=== PATIENT | female | born 1940 | race Caucasian/White ===

== ENCOUNTER 2017-01-18 14:41 | Emergency (ER) | payer OTHER, MEDICARE ==
[~2017-01-18] VITALS: Ht 152.4 cm; Wt 89.0 kg
[~2017-01-18 14:41] MED LIST: ASCO10003 PO; ASCO500T16 PO; ATOR-26 PO; CHOL100010 PO; CITA40TA4 PO; CRFL PO; CYAN500T PO; DONE1TAB26 PO; FERROUS SULFATE PO; INSDGI SC; INSU100I2 SC; LEVO100T PO; METO25TA56 PO; MISO200T PO; MULTTAB58 PO; NTRGSL/4 UT; OMEP40CA PO; TYLOTC500 PO
[2017-01-18 14:49] VITALS: TEMP 36.4; Ht 152.4 cm; Wt 89.0 kg
[2017-01-18] MEDS ORDERED: OMEP40CA41 PO (16:23)
[2017-01-18] MEDS ORDERED: QUET1TAB30 PO (16:23)
[2017-01-18] MEDS ORDERED: ASPI81TA28 PO (16:23)
[2017-01-18] MEDS ORDERED: SYN137 PO (16:23)
[2017-01-18] MEDS ORDERED: QUET1TAB32 PO (16:23)
[2017-01-18] MEDS ORDERED: FERR325T5 PO (16:23)
[2017-01-18] MEDS ORDERED: NMN5 PO (16:23)
[2017-01-18] MEDS ORDERED: TRAZ50TA35 PO (16:23)
[2017-01-18] MEDS ORDERED: ISR/30 PO (16:23)
[2017-01-18] MEDS ORDERED: CHOL100010 PO (16:23)
[2017-01-18] MEDS ORDERED: TRAMADOL HCL 50 MG TAB PO STA (16:26)
[2017-01-18] MEDS ORDERED: TRAMADOL HCL 50 MG HOME PACK PO ONE (16:30)
--- NOTE | 2017-01-18 16:32 | EMERGENCY ROOM VISIT NOTE ---
History Report prepared by Juan: Yuridia Bass Under the Supervision of: Dr. Richy George D.O. First contact with patient: 16:06 Chief Complaint: PELVIC PAIN Stated Complaint: PRESSURE ULCER DROPPED BLADDER History of Present Illness The patient is a 76 year old female who presents to the Emergency Room with complaints of persistent pelvic pain that started yesterday. The patient rates her pain a 6/10 in severity. The patient states that she had an extended bladder and went to [facility] 3 days ago. The patient notes that they put in a pessary but they had difficulty getting it in. She states that they switched it to a smaller size so they could insert it. She notes that she was told to take it out and clean it yesterday but they had difficulty getting it back in. The patient reports that when they put it back in, she was in a lot of discomfort. She notes that she has been experiencing a lot of pain since she put it back in. She states that she it is not in a lot of pain right now but she notices that it is there. The patient reports that since she changed the pessary, she has been experiencing frequent urination. Source of History: patient Onset: Yesterday Position: pelvis Symptom Intensity: 6/10 Associated Symptoms: + urinary symptoms (frequent urination) Review of Systems See HPI for pertinent positives & negatives. A total of 10 systems reviewed and were otherwise negative. Past Medical & Surgical Medical Problems: (1) CAD (coronary artery disease) (2) Carotid stenosis (3) CKD (chronic kidney disease), stage III (4) Depression (5) Diabetic retinopathy (6) DM type 2 (diabetes mellitus, type 2) (7) Dyslipidemia (8) Gout (9) Hyperlipidemia (10) Hypertension (11) Hypothyroidism (12) Osteoporosis (13) SBO (small bowel obstruction) (14) Sick sinus syndrome (15) UGIB (upper gastrointestinal bleed) Surgical Problems: (1) Hx of cholecystectomy (2) Hx of gastric bypass (3) Implantation of cardiac pacemaker (4) S/P CABG x 4 (5) S/P cataract surgery (6) S/p cystocele repair (7) S/p excision of breast lesion (8) S/p panniculectomy with hernia repair Family History FHx: heart disease Social History Smoking Status: Never Smoker Alcohol Use: none Drug Use: none Marital Status: Housing Status: lives with family Occupation Status: retired Current/Historical Medications Scheduled Ascorbic Acid (Vitamin C), 1 TAB PO QAM Aspirin (Aspirin Ec), 81 MG PO DAILY Atorvastatin (Lipitor), 80 MG PO QPM Cholecalciferol (Vitamin D), 1,000 UNITS PO BID Citalopram (Citalopram Hydrobromide), 1 TAB PO QAM Donepezil Hydrochloride (Donepezil Hcl), 1 TAB PO HS Ferrous Sulfate (Ferrous Sulfate), 65 MG PO QAM Insulin Glargine (Lantus), 14 UNITS SC HS Insulin Lispro (Human) (Humalog Kwikpen), 1 DOSE SC TID Isosorbide Dinitrate (Isordil), 30 MG PO QPM Levothyroxine Sodium (Levothyroxine Sodium), 137 MG PO QAM Memantine (Namenda), 5 MG PO BID Metoprolol Tartrate (Lopressor) (Lopressor), 0.5 TAB PO BID Multiple Vitamin (Multivitamin), 1 TAB PO QPM Nitroglycerin (Nitrostat), 0.4 MG UT PRN Omeprazole (Prilosec), 40 MG PO BID Quetiapine Fumarate (Seroquel), 25 MG PO QAM Quetiapine Fumarate (Seroquel), 50 MG PO QPM Trazodone Hcl (Trazodone), 100 MG PO HS Scheduled PRN Acetaminophen (Tylenol), 500 MG PO Q6H PRN for Pain Allergies Coded Allergies: Niacin (Verified Allergy, Severe, HNT, 01/18/17) Dust (Verified Allergy, Intermediate, ASTHMA SYMPTOMS, 01/18/17) Oxycodone (Verified Adverse Reaction, Intermediate, UNABLE TO URINATE, ) Uncoded Allergies: GORE KWESI MESH (Allergy, Severe, SEVERE INFECTION/KEEPS WOUND FROM HEALING, 10/08/12) Physical Exam Vital Signs Date Time Temp Pulse Resp B/P (MAP) Pulse Ox O2 Delivery O2 Flow Rate FiO2 01/18/17 14:49 36.4 63 16 170/85 95 Room Air Physical Exam CONSTITUTIONAL/VITAL SIGNS: Reviewed / noted above. GENERAL: Non-toxic in appearance. INTEGUMENTARY: Warm, dry, and [place]. HEAD: Normocephalic. EYES: without scleral icterus or trauma. ENT/OROPHARYNX: clear and moist. LYMPHADENOPATHY/NECK: Is supple without lymphadenopathy or meningismus. RESPIRATORY: Lungs clear and equal. CARDIOVASCULAR: Regular rate and rhythm. GI/ABDOMEN: Soft and nontender. No organomegaly or pulsatile mass. No rebound or guarding. Normal bowel sounds. EXTREMITIES: Warm and well perfused. BACK: No CVA tenderness. NEUROLOGICAL: Intact without focal deficits. PSYCHIATRIC: normal affect. MUSCULOSKELETAL: Normally developed with good muscle tone. VAGINAL: There is a pessary in place. I was unable to remove this. There is no obvious bleeding or infection or abnormal discharge. TRIAGE NURSING DOCUMENTATION REVIEWED. Medical Decision & Procedures Medications Administered Medications (Trade) Dose Ordered Sig/Sammy Route Start Time Stop Time Status Last Admin Dose Admin Tramadol HCl (Ultram Tab) 50 mg NOW STAT PO 01/18/17 16:26 01/18/17 16:27 DC 01/18/17 16:34 50 MG Tramadol HCl (Ultram Home Pack) 1 homepack UD ONCE PO 01/18/17 16:30 01/18/17 16:31 DC 01/18/17 16:34 1 HOMEPACK ED Course 1606: Previous medical records were reviewed. The patient was evaluated in room B11B. A complete history and physical examination was performed. 1621: I discussed the patient's case with Rian Ramirez. The patient will be evaluated for further treatment and disposition. 1626: Ordered Ultram Tab 50 mg PO. 1630: Ordered Ultram Home Pack 1 home pack PO. Medical Decision Differential includes infection, trauma, foreign body discomfort. This is a 76-year-old female who presents the ED with a chief complaint of discomfort from a pessary that was placed on . The patient removed it on Thursday and replaced it. Today was causing some discomfort and they were unable to remove it. They came in for evaluation. The pessary appears to be adherent to the surface. Rotation and pulling did not help with removing it. I was unable to grab the edge of the pessary with my finger. I spoke with Dr. Ewing about the patient. He recommends the patient follow up with their office tomorrow and they will evaluate the situation and removed the pessary. The patient was given Ultram for pain. She was given Ultram home pack. She is felt to be stable for discharge. Medication Reconcilliation Current Medication List: was personally reviewed by me Blood Pressure Screening Patient's blood pressure: Normal blood pressure Impression Primary Impression: Vaginal irritation from pessary Scribe Attestation The scribe's documentation has been prepared under my direction and personally reviewed by me in its entirety. I confirm that the note above accurately reflects all work, treatment, procedures, and medical decision making performed by me. Departure Information Dispostion Home / Self-Care Referrals Marissa Manley M.D. (PCP) Patient Instructions My [facility] Additional Instructions Use Ultram: One tablet every 6 hours as needed for discomfort. Call the gynecology office tomorrow at 8 AM to schedule to be seen for removal of the pessary.
[2017-01-18 16:42] VITALS: BP 133/67; PULSE 76; O2SAT 98
== END 2017-01-18 16:43 | disposition home or self-care (01) ==
LOC: C.EDB 14:44
DX: N89.8 Other specified noninflammatory disorders of vagina (principal); Z96.0 Presence of urogenital implants; I25.10 Atherosclerotic heart disease of native coronary artery without angina pectoris; I65.29 Occlusion and stenosis of unspecified carotid artery; I12.9 Hypertensive chronic kidney disease with stage 1 through stage 4 chronic kidney disease, or unspecified chronic kidney disease; N18.3 Chronic kidney disease, stage 3 (moderate); F32.9 Major depressive disorder, single episode, unspecified; E11.22 Type 2 diabetes mellitus with diabetic chronic kidney disease; E11.319 Type 2 diabetes mellitus with unspecified diabetic retinopathy without macular edema; E78.5 Hyperlipidemia, unspecified; E03.9 Hypothyroidism, unspecified; M81.0 Age-related osteoporosis without current pathological fracture; M10.9 Gout, unspecified; I49.5 Sick sinus syndrome; Z95.0 Presence of cardiac pacemaker; Z98.84 Bariatric surgery status; Z79.82 Long term (current) use of aspirin; Z79.4 Long term (current) use of insulin

== ENCOUNTER 2017-05-15 12:52 | Observation (INO) | payer OTHER, MEDICARE ==
[~2017-05-15] VITALS: Ht 152.4 cm; Wt 90.6 kg
[~2017-05-15 12:52] MED LIST changes: -ASCO500T16 PO; +ASPI81TA28 PO; -CRFL PO; -CYAN500T PO; +FERR325T5 PO; -FERROUS SULFATE PO; +ISR/30 PO; -LEVO100T PO; -MISO200T PO; +NMN5 PO; -OMEP40CA PO; +OMEP40CA41 PO; +QUET1TAB30 PO; +QUET1TAB32 PO; +SYN137 PO; +TRAZ50TA35 PO
[2017-05-15] MEDS ORDERED: CALC-393 PO (14:27)
[2017-05-15] MEDS ORDERED: DONE10TA12 PO (14:27)
[2017-05-15] MEDS ORDERED: DIPH-437 PO (14:27)
[2017-05-15 14:47] LABS: BASO % 0.2 %; BASO ABS # 0.02 K/uL (0-0.2); EOS % 0.9 %; EOS ABS # 0.08 K/uL (0-0.5); HEMATOCRIT 38.5 % (37-47); HEMOGLOBIN 12.5 g/dL (12.0-16.0); IG# 0.02 K/uL (0.00-0.02); LYMPH % 9.8 %; LYMPH ABS # 0.85 K/uL (1.2-3.4); MEAN CELL VOLUME 95.3 fL (80-100); MEAN CORPUSCULAR HEMOGLOBIN 30.9 pg (25-34); MEAN CORPUSCULAR HGB CONC 32.5 g/dl (32-36); MEAN PLATELET VOLUME 11.3 fL (7.4-10.4); MONO % 5.8 %; NEUT % 83.1 %; NEUT ABS # 7.17 K/uL (1.4-6.5); PLATELET COUNT 170 K/uL (130-400); RED CELL DISTRIBUTION WIDTH CV 13.6 % (11.5-14.5); RED CELL DISTRIBUTION WIDTH SD 47.1 fL (36.4-46.3); WHITE BLOOD COUNT 8.64 K/uL (4.8-10.8)
--- NOTE | 2017-05-15 14:59 | DIAGNOSTIC IMAGING REPORT ---
CHEST ONE VIEW PORTABLE CLINICAL HISTORY: CHEST PAIN dyspnea COMPARISON STUDY: 06/23/2015 FINDINGS: Pre-existing findings of a prior median sternotomy. Permanent bipolar cardiac pacemaker in good position. Lungs are clear. Diaphragms smooth. IMPRESSION: No acute process. The above report was generated using voice recognition software. It may contain grammatical, syntax or spelling errors. Electronically signed by: James Delcid M.D. 05/15/2017 2:57 PM Dictated Date/Time: 05/15/2017 2:57 PM
[2017-05-15 15:09] LABS: ALBUMIN 2.7 gm/dl (3.4-5.0); ALT/SGPT 38 U/L (12-78); AST/SGOT 34 U/L (15-37); BLOOD UREA NITROGEN 28 mg/dl (7-18); CALCIUM 8.6 mg/dl (8.5-10.1); CARBON DIOXIDE 27 mmol/L (21-32); CREATININE 1.06 mg/dl (0.60-1.20); GLUCOSE 220 mg/dl (70-99); LIPASE 112 U/L (73-393); POTASSIUM 4.7 mmol/L (3.5-5.1); SODIUM 138 mmol/L (136-145)
[2017-05-15 15:15] LABS: ALKALINE PHOSPHATASE 125 U/L (45-117); TOTAL PROTEIN 6.9 gm/dl (6.4-8.2)
[2017-05-15] MEDS ORDERED: ASPIRIN 81 MG CHEW PO STA (15:31)
--- NOTE | 2017-05-15 15:42 | EMERGENCY ROOM VISIT NOTE ---
History Report prepared by Juan: Ellen Otero Under the Supervision of: Dr. Stuart Hernández M.D. First contact with patient: 14:31 Chief Complaint: CHEST PAIN Stated Complaint: CHEST PAIN HX OF HEART ATTACK Nursing Triage Summary: triage note: Pt reports mid chest pain lasting approx 5 min at 1130 today. pt reports hx of pacemaker and and quad bypass. History of Present Illness The patient is a 77 year old female who presents to the Emergency Room with complaints of resolved chest pain starting at 1130 today. The patient complained of fullness and heaviness in her chest at 1130 and associated "paleness". She felt SOB at the time. She appeared pale. She was given a nitro which relieved her pain. Her notes that she has been feeling SOB with ambulation recently. She has not had significant diaphoresis, nausea, vomiting, fever, chills, cough, congestion, or urinary symptoms. She has a history of MO and CABG x4. With her previous MO she complained of indigestion. She has a pacemaker. Source of History: patient, family, spouse/significant other Onset: 1130 Position: chest Quality: other (heaviness, fullness) Timing: resolved Modifying Factors (Relieving): other (nitro) Associated Symptoms: + SOB, No fevers, No chills, No diaphoresis, No cough, No nausea, No vomiting, No urinary symptoms Review of Systems See HPI for pertinent positives and negatives. A total of ten systems were reviewed and were otherwise negative. Past Medical & Surgical Medical Problems: (1) CAD (coronary artery disease) (2) Carotid stenosis (3) CKD (chronic kidney disease), stage III (4) Depression (5) Diabetic retinopathy (6) DM type 2 (diabetes mellitus, type 2) (7) Dyslipidemia (8) Gout (9) Hyperlipidemia (10) Hypertension (11) Hypothyroidism (12) Osteoporosis (13) Sick sinus syndrome (14) UGIB (upper gastrointestinal bleed) Surgical Problems: (1) Hx of cholecystectomy (2) Hx of gastric bypass (3) Implantation of cardiac pacemaker (4) S/P CABG x 4 (5) S/P cataract surgery (6) S/p cystocele repair (7) S/p excision of breast lesion (8) S/p panniculectomy with hernia repair Family History FHx: heart disease Social History Smoking Status: Never Smoker Alcohol Use: none Drug Use: none Marital Status: Housing Status: lives with family Occupation Status: retired Current/Historical Medications Scheduled Ascorbic Acid (Vitamin C), 1 TAB PO QAM Aspirin (Aspirin Ec), 81 MG PO DAILY Atorvastatin (Lipitor), 80 MG PO QPM Cholecalciferol (Vitamin D), 1,000 UNITS PO BID Citalopram (Citalopram Hydrobromide), 1 TAB PO QAM Donepezil Hydrochloride (Donepezil Hcl), 1 TAB PO HS Ferrous Sulfate (Ferrous Sulfate), 65 MG PO QAM Insulin Glargine (Lantus), 14 UNITS SC HS Insulin Lispro (Human) (Humalog Kwikpen), 1 DOSE SC TID Isosorbide Mononitrate Ext Rel (Imdur Ext Rel), 1 TAB PO HS Levothyroxine Sodium (Levothyroxine Sodium), 137 MG PO QAM Memantine (Namenda), 5 MG PO BID Metoprolol Tartrate (Lopressor) (Lopressor), 0.5 TAB PO BID Multiple Vitamin (Multivitamin), 1 TAB PO QPM Nitroglycerin (Nitrostat), 0.4 MG UT PRN Omeprazole (Prilosec), 40 MG PO BID Quetiapine Fumarate (Seroquel), 25 MG PO QAM Quetiapine Fumarate (Seroquel), 50 MG PO QPM Trazodone Hcl (Trazodone), 100 MG PO HS Allergies Coded Allergies: Niacin (Verified Allergy, Severe, HNT, 05/15/17) Dust (Verified Allergy, Intermediate, ASTHMA SYMPTOMS, 05/15/17) Oxycodone (Verified Adverse Reaction, Intermediate, UNABLE TO URINATE, ) Uncoded Allergies: GORE KWESI MESH (Allergy, Severe, SEVERE INFECTION/KEEPS WOUND FROM HEALING, 10/08/12) Physical Exam Vital Signs Date Time Temp Pulse Resp B/P (MAP) Pulse Ox O2 Delivery O2 Flow Rate FiO2 05/15/17 16:02 65 16 177/77 96 Room Air 05/15/17 14:41 65 05/15/17 14:26 65 20 145/87 94 Room Air 05/15/17 14:25 96 Room Air 05/15/17 13:02 36.8 65 20 199/64 93 Room Air Physical Exam GENERAL: Awake, alert, well-appearing, in no distress HENT: Normocephalic, atraumatic. Oropharynx unremarkable. EYES: Normal conjunctiva. Sclera non-icteric. NECK: Supple. No nuchal rigidity. FROM. No JVD. RESPIRATORY: Clear to auscultation. CARDIAC: Regular rate, normal rhythm. Extremities warm and well perfused. Pulses equal. ABDOMEN: Obese. Soft, non-distended. No tenderness to palpation. No rebound or guarding. No masses. RECTAL: Deferred. MUSCULOSKELETAL: Chest examination reveals no tenderness. The back is symmetrical on inspection without obvious abnormality. There is no CVA tenderness to palpation. No joint edema. LOWER EXTREMITIES: Calves are equal size bilaterally and non-tender. Scant lower extremity edema. No discoloration. NEURO: Normal sensorium. No sensory or motor deficits noted. SKIN: No rash or jaundice noted. Medical Decision & Procedures ER Provider Diagnostic Interpretation: Xray results as stated below per my and radiologist interpretation: CHEST ONE VIEW PORTABLE CLINICAL HISTORY: CHEST PAIN dyspnea COMPARISON STUDY: 06/23/2015 FINDINGS: Pre-existing findings of a prior median sternotomy. Permanent bipolar cardiac pacemaker in good position. Lungs are clear. Diaphragms smooth. IMPRESSION: No acute process. The above report was generated using voice recognition software. It may contain grammatical, syntax or spelling errors. Electronically signed by: James Delcid M.D. 05/15/2017 2:57 PM Dictated Date/Time: 05/15/2017 2:57 PM Laboratory Results 05/15/17 14:28 Red Blood Count 4.04, Mean Corpuscular Volume 95.3, Mean Corpuscular Hemoglobin 30.9, Mean Corpuscular Hemoglobin Concent 32.5, Mean Platelet Volume 11.3, Neutrophils (%) (Auto) 83.1, Lymphocytes (%) (Auto) 9.8, Monocytes (%) (Auto) 5.8, Eosinophils (%) (Auto) 0.9, Basophils (%) (Auto) 0.2, Neutrophils # (Auto) 7.17, Lymphocytes # (Auto) 0.85, Monocytes # (Auto) 0.50, Eosinophils # (Auto) 0.08, Basophils # (Auto) 0.02 05/15/17 14:28 Test 05/15/17 14:28 White Blood Count 8.64 K/uL (4.8-10.8) Red Blood Count 4.04 M/uL (4.2-5.4) Hemoglobin 12.5 g/dL (12.0-16.0) Hematocrit 38.5 % (37-47) Mean Corpuscular Volume 95.3 fL (80-100) Mean Corpuscular Hemoglobin 30.9 pg (25-34) Mean Corpuscular Hemoglobin Concent 32.5 g/dl (32-36) Platelet Count 170 K/uL (130-400) Mean Platelet Volume 11.3 fL (7.4-10.4) Neutrophils (%) (Auto) 83.1 % Lymphocytes (%) (Auto) 9.8 % Monocytes (%) (Auto) 5.8 % Eosinophils (%) (Auto) 0.9 % Basophils (%) (Auto) 0.2 % Neutrophils # (Auto) 7.17 K/uL (1.4-6.5) Lymphocytes # (Auto) 0.85 K/uL (1.2-3.4) Monocytes # (Auto) 0.50 K/uL (0.11-0.59) Eosinophils # (Auto) 0.08 K/uL (0-0.5) Basophils # (Auto) 0.02 K/uL (0-0.2) RDW Standard Deviation 47.1 fL (36.4-46.3) RDW Coefficient of Variation 13.6 % (11.5-14.5) Immature Granulocyte % (Auto) 0.2 % Immature Granulocyte # (Auto) 0.02 K/uL (0.00-0.02) Prothrombin Time 10.1 SECONDS (9.0-12.0) Prothromb Time International Ratio 1.0 (0.9-1.1) Anion Gap 5.0 mmol/L (3-11) Est Creatinine Clear Calc Drug Dose 43.4 ml/min Estimated GFR () 58.2 Estimated GFR (Non- 50.3 BUN/Creatinine Ratio 26.5 (10-20) Calcium Level 8.6 mg/dl (8.5-10.1) Magnesium Level 1.9 mg/dl (1.8-2.4) Total Bilirubin 0.2 mg/dl (0.2-1) Direct Bilirubin < 0.1 mg/dl (0-0.2) Aspartate Amino Transf (AST/SGOT) 34 U/L (15-37) Alanine Aminotransferase (ALT/SGPT) 38 U/L (12-78) Alkaline Phosphatase 125 U/L (45-117) Pro-B-Type Natriuretic Peptide 959 pg/ml (0-1800) Total Protein 6.9 gm/dl (6.4-8.2) Albumin 2.7 gm/dl (3.4-5.0) Lipase 112 U/L (73-393) Laboratory results reviewed by me Medications Administered Medications (Trade) Dose Ordered Sig/Sammy Route Start Time Stop Time Status Last Admin Dose Admin Aspirin (Aspirin Chew) 324 mg NOW STAT PO 05/15/17 15:31 05/15/17 15:35 DC 05/15/17 16:04 243 MG ECG Per My Interpretation Indication: chest pain Rate (beats per minute): 65 Rhythm: other (atrial paced) Findings: no acute ischemic change, left axis deviation ED Course 1434: The patient was evaluated in room C5. A complete history and physical exam was performed. 1531: Aspirin 324 mg PO. 1548: I discussed the patient with Dr. Bustos, [facility] - She will evaluate the patient for further treatment. 1654: Upon reexamination, the patient was doing well. I discussed the test results and treatment plan with her and her family. The patient will be evaluated for further management. Medical Decision I reviewed the patient's past medical history, medications, and the nursing notes as described above. Differential diagnosis: Etiologies such as cardiac ischemia, aortic dissection, pulmonary embolism, pneumonia, pneumothorax, musculoskeletal, infections, pericarditis, myocarditis , esophageal rupture, gastrointestinal, as well as others were entertained. The patient is a 77 y/o woman with pmhx of CAD s/p quad bypass presents to the emergency department with SSCP that was a pressure with associated "paleness"/ slight sweating lasting 15 minutes resolved with home NTG. Arrives pain free in NAD, AFVSS. EKG atrial paced without acute ischemia. Trop negative. CXR unremarkable. Heart score 6, moderate risk. Will admit for ACS r/o. Case d/w Dr. Bustos, [facility], who will admit the patient for further management. Medication Reconcilliation Current Medication List: was personally reviewed by me Blood Pressure Screening Patient's blood pressure: Elevated blood pressure Referred to hospitalist. Consults Time Called: 1539 Consulting Physician: [facility] Returned Call: [phone] I discussed the patient with her - She will evaluate the patient for further treatment. Impression Primary Impression: Substernal chest pain Scribe Attestation The scribe's documentation has been prepared under my direction and personally reviewed by me in its entirety. I confirm that the note above accurately reflects all work, treatment, procedures, and medical decision making performed by me. Departure Information Dispostion Being Evaluated By Hospitalist Referrals Marissa Manley M.D. (PCP) Patient Instructions My [facility]
[2017-05-15] MEDS ORDERED: GLUCAGON FOR INJ 1 MG VIAL SQ PRN (16:45)
[2017-05-15] MEDS ORDERED: ACETAMINOPHEN 325 MG TAB PO PRN (16:45)
[2017-05-15] MEDS ORDERED: GLUCOSE 10 TABS/TUBE PO PRN (16:45)
[2017-05-15] MEDS ORDERED: GLUCOSE 40% GEL 15 GM TUBE PO PRN (16:45)
[2017-05-15] MEDS ORDERED: DEXTROSE 50% 50 ML SYR IV PRN (16:45)
[2017-05-15] MEDS ORDERED: NITROGLYCERIN 0.4 MG SL PER TAB CHARGE SL PRN (16:45)
[2017-05-15] MEDS ORDERED: ONDANSETRON INJ 2 MG/ML 2 ML VIAL IV PRN (16:45)
[2017-05-15] MEDS ORDERED: ISOS30TA35 PO (16:58)
[2017-05-15] MEDS ORDERED: ISOSORBIDE MONONITRATE 30 MG TABCR PO SCH ×2 (17:30→21:00)
--- NOTE | 2017-05-15 17:42 | History and Physical ---
History & Physical Date & Time of Service: May 15, 2017 ~ 16:15 Chief Complaint: Chest Pain Primary Care Physician: Marissa Manley M.D. History of Present Illness 77 year old female who presents to the ED with chest pain. At around 1100 this morning, patient developed a left sided chest pressure. She rates the pain # 4/ 10. No radiation of the pain into the jaw, neck, shoulder, or arm. Pain occurred at rest. She took SL nitro and pain was resolved. thought she was breathing a littler heavier than normal. No nausea, diaphoresis, lightheadedness, or dizziness. Patient reports she has been feeling well recently. She chronically sleeps in the a recliner. She frequently climbs 14 steps in her home without difficulty. She denies orthopnea and lower extremity edema. No abdominal pain, vomiting, or diarrhea. She denies fever and chills. No urinary symptoms. In the ED, patient's initial troponin is negative and EKG does not show any acute ST changes. Past Medical/Surgical History Medical Problems: (1) CAD (coronary artery disease) Permanent Comment: s/p CABG x 4 in 1997 Status: Chronic (2) Carotid stenosis Status: Chronic (3) CKD (chronic kidney disease), stage III Status: Chronic (4) Depression Status: Chronic (5) Diabetic retinopathy Status: Chronic (6) DM type 2 (diabetes mellitus, type 2) Status: Chronic (7) Dyslipidemia Status: Chronic (8) Gout Status: Chronic (9) Hyperlipidemia Status: Chronic (10) Hypertension Status: Chronic (11) Hypothyroidism Status: Chronic (12) Osteoporosis Status: Chronic (13) Sick sinus syndrome Permanent Comment: s/p pacemaker insertion in 2006 and revision 10/2013 Status: Chronic Surgical Problems: (1) Hx of cholecystectomy Permanent Comment: July 2014 Status: Chronic (2) Hx of gastric bypass Permanent Comment: 2002 Status: Chronic (3) Implantation of cardiac pacemaker Status: Chronic (4) S/P CABG x 4 Permanent Comment: 1997 Status: Chronic (5) S/P cataract surgery Status: Chronic (6) S/p cystocele repair Status: Chronic (7) S/p excision of breast lesion Permanent Comment: bilateral-benign Status: Chronic (8) S/p panniculectomy with hernia repair Permanent Comment: 2005 Status: Chronic Family History FH: dementia MOTHER Social History Smoking Status: Former Smoker Alcohol Use: none Immunizations History of Influenza Vaccine: Yes Influenza Vaccine Date: Jan 26, 2017 History of Tetanus Vaccine?: Yes Tetanus Immunization Date: Nov 02, 2007 History of Pneumococcal: Yes Pneumococcal Date: Sep 01, 2014 Allergies Coded Allergies: Niacin (Verified Allergy, Severe, HNT, 05/15/17) Dust (Verified Allergy, Intermediate, ASTHMA SYMPTOMS, 05/15/17) Oxycodone (Verified Adverse Reaction, Intermediate, UNABLE TO URINATE, ) Uncoded Allergies: GORE KWESI MESH (Allergy, Severe, SEVERE INFECTION/KEEPS WOUND FROM HEALING, 10/08/12) Home Medications Scheduled Ascorbic Acid (Vitamin C), 1 TAB PO QAM Aspirin (Aspirin Ec), 81 MG PO DAILY Atorvastatin (Lipitor), 80 MG PO QPM Cholecalciferol (Vitamin D), 1,000 UNITS PO BID Citalopram (Citalopram Hydrobromide), 1 TAB PO QAM Donepezil Hydrochloride (Donepezil Hcl), 1 TAB PO HS Ferrous Sulfate (Ferrous Sulfate), 65 MG PO QAM Insulin Glargine (Lantus), 14 UNITS SC HS Insulin Lispro (Human) (Humalog Kwikpen), 1 DOSE SC TID Isosorbide Mononitrate Ext Rel (Imdur Ext Rel), 60 MG PO QAM Levothyroxine Sodium (Levothyroxine Sodium), 137 MG PO QAM Memantine (Namenda), 5 MG PO BID Metoprolol Tartrate (Lopressor), 0.5 TAB PO QPM Metoprolol Tartrate (Lopressor) (Lopressor), 1 TAB PO QAM Multiple Vitamin (Multivitamin), 1 TAB PO QPM Nitroglycerin (Nitrostat), 0.4 MG UT PRN Omeprazole (Prilosec), 40 MG PO BID Quetiapine Fumarate (Seroquel), 25 MG PO QAM Quetiapine Fumarate (Seroquel), 50 MG PO QPM Trazodone Hcl (Trazodone), 100 MG PO HS Review of Systems ROS per HPI, all other systems reviewed and negative Physical Exam Vital Signs Date Time Temp Pulse Resp B/P (MAP) Pulse Ox O2 Delivery O2 Flow Rate FiO2 05/15/17 16:02 65 16 177/77 96 Room Air 05/15/17 14:41 65 05/15/17 14:26 65 20 145/87 94 Room Air 05/15/17 14:25 96 Room Air 05/15/17 13:02 36.8 65 20 199/64 93 Room Air General Appearance: WD/WN, no apparent distress Head: normocephalic, atraumatic Eyes: normal inspection, EOMI, sclerae normal ENT: hearing grossly normal, + pertinent finding (mucous membranes moist) Neck: supple, no JVD, trachea midline Respiratory/Chest: lungs clear, normal breath sounds, no respiratory distress Cardiovascular: regular rate, rhythm, no edema, normal peripheral pulses Abdomen/GI: normal bowel sounds, non tender, soft, no organomegaly Extremities/Musculoskelatal: normal inspection, no calf tenderness, normal capillary refill Neurologic/Psych: no motor/sensory deficits, alert, normal mood/affect, oriented x 3 Skin: normal color, warm/dry Diagnostics Laboratory Results Results Past 24 Hours Test 05/15/17 14:28 05/15/17 16:55 Range/Units White Blood Count 8.64 4.8-10.8 K/uL Red Blood Count 4.04 4.2-5.4 M/uL Hemoglobin 12.5 12.0-16.0 g/dL Hematocrit 38.5 37-47 % Mean Corpuscular Volume 95.3 80-100 fL Mean Corpuscular Hemoglobin 30.9 25-34 pg Mean Corpuscular Hemoglobin Concent 32.5 32-36 g/dl Platelet Count 170 130-400 K/uL Mean Platelet Volume 11.3 7.4-10.4 fL Neutrophils (%) (Auto) 83.1 % Lymphocytes (%) (Auto) 9.8 % Monocytes (%) (Auto) 5.8 % Eosinophils (%) (Auto) 0.9 % Basophils (%) (Auto) 0.2 % Neutrophils # (Auto) 7.17 1.4-6.5 K/uL Lymphocytes # (Auto) 0.85 1.2-3.4 K/uL Monocytes # (Auto) 0.50 0.11-0.59 K/uL Eosinophils # (Auto) 0.08 0-0.5 K/uL Basophils # (Auto) 0.02 0-0.2 K/uL RDW Standard Deviation 47.1 36.4-46.3 fL RDW Coefficient of Variation 13.6 11.5-14.5 % Immature Granulocyte % (Auto) 0.2 % Immature Granulocyte # (Auto) 0.02 0.00-0.02 K/uL Sodium Level 138 136-145 mmol/L Potassium Level 4.7 3.5-5.1 mmol/L Chloride Level 106 98-107 mmol/L Carbon Dioxide Level 27 21-32 mmol/L Anion Gap 5.0 3-11 mmol/L Blood Urea Nitrogen 28 7-18 mg/dl Creatinine 1.06 0.60-1.20 mg/dl Est Creatinine Clear Calc Drug Dose 43.4 ml/min Estimated GFR () 58.2 Estimated GFR (Non- 50.3 BUN/Creatinine Ratio 26.5 10-20 Random Glucose 220 70-99 mg/dl Calcium Level 8.6 8.5-10.1 mg/dl Magnesium Level 1.9 1.8-2.4 mg/dl Total Bilirubin 0.2 0.2-1 mg/dl Direct Bilirubin < 0.1 0-0.2 mg/dl Aspartate Amino Transf (AST/SGOT) 34 15-37 U/L Alanine Aminotransferase (ALT/SGPT) 38 12-78 U/L Alkaline Phosphatase 125 45-117 U/L Troponin I < 0.015 0-0.045 ng/ml Pro-B-Type Natriuretic Peptide 959 0-1800 pg/ml Total Protein 6.9 6.4-8.2 gm/dl Albumin 2.7 3.4-5.0 gm/dl Lipase 112 73-393 U/L Diagnostic Radiology CXR IMPRESSION: No acute process. Impression Assessment and Plan CHEST PAIN, HX CAD SSS S/P PACEMAKER - admit to tele - patient presenting with chest pressure that occurred with rest, resolved with SL nitro given at home - hx CAD s/p CABG x 4 1997 - initial troponin negative, EKG without acute ST changes - will continue to cycle cardiac enzymes, resting echo - continue ASA, beta jeremie, statin, and nitrate - PRN nitro and EKG with further chest pain - pacer interrogation - BP mildly elevated which could be contributing to patient's symptoms - patient reports anxiety about being in the hospital; will give home meds and reassess - cardio consult in AM DM - hgb a1c 8.0 12/2016 - Lantus + SSI ALZHEIMER'S - continue Aricept and Namenda HYPOTHYROIDISM - continue levothyroxine DVT PROPHYLAXIS - SQ Lovenox DISPO - The patient will be placed as observation status for now until further work up is complete. ATTENDING ADDENDUM ; pt seen and examined, care co ordinated with Nadia ARORA 77 yo F with hx of CAD , presented with intermittent chest pain with relief with SL nitro initial troponin , EKG negative for ischemia observe in Tele for cardiac work up serial troponin , resting ECHO , repeat EKG in AM please refer to documentation of Nadia Lizarraga for further discussion on other issues Francie Bustos MD VTE Prophylaxis VTE Risk Assessment Done? Y/N: Yes Risk Level: Moderate
[2017-05-15 18:00] VITALS: BP 176/81; PULSE 65; TEMP 36.7; O2SAT 97; Ht 152.4 cm; Wt 90.6 kg
[2017-05-15] MEDS ORDERED: IV FLUIDS COMPLETED PRN (18:30)
[2017-05-15 20:00] VITALS: BP 182/68; PULSE 65; TEMP 37.2; O2SAT 95; O2SAT 97
[2017-05-15] MEDS: MEMANTINE 5 MG TAB PO SCH (20:21)
[2017-05-15] MEDS: METOPROLOL TARTRATE 25 MG TAB PO SCH (20:22)
[2017-05-15] MEDS: PANTOprazole SOD 40 MG TAB PO SCH (20:23)
[2017-05-15] MEDS: CHOLECALCIFEROL 1000 INTER.UNIT TAB PO SCH (20:23)
[2017-05-15] MEDS: INSULIN ASPART 100 UNITS/ML 3 ML PEN SC SCH (20:25)
[2017-05-15 20:35] LABS: CKMB 1.7 ng/ml (0.5-3.6)
[2017-05-15] MEDS ORDERED: QUETIAPINE FUMARATE 25 MG TAB PO SCH (21:00)
[2017-05-15] MEDS ORDERED: TRAZODONE HCL 100 MG TAB PO SCH (21:00)
[2017-05-15] MEDS ORDERED: MULTIVITAMIN TAB PO SCH (21:00)
[2017-05-15] MEDS ORDERED: INSULIN GLARGINE SOLOSTAR 100 UNITS/ML 3 ML PEN SC SCH (21:00)
[2017-05-15] MEDS ORDERED: ENOXAPARIN 40 MG/0.4 ML SYR SC SCH (21:00)
[2017-05-15] MEDS ORDERED: ATORVASTATIN 40 MG TAB PO SCH (21:00)
[2017-05-15] MEDS ORDERED: DONEPEZIL HCL 10 MG TAB PO SCH (21:00)
[2017-05-15 23:00] VITALS: BP 132/63; O2SAT 95
[2017-05-15 23:25] VITALS: BP 119/71; PULSE 75; TEMP 36.7; O2SAT 94
[2017-05-16] VITALS: O2SAT 97
[2017-05-16 02:27] LABS: CKMB 1.5 ng/ml (0.5-3.6)
[2017-05-16 03:45] VITALS: BP 141/60; PULSE 65; TEMP 36.7; O2SAT 94
[2017-05-16 04:00] VITALS: O2SAT 97
[2017-05-16] MEDS ORDERED: LEVOTHYROXINE 137 MCG TAB PO SCH (06:00)
[2017-05-16 06:56] LABS: HEMOGLOBIN 12.1 g/dL (12.0-16.0); MEAN CELL VOLUME 95.4 fL (80-100); MEAN CORPUSCULAR HEMOGLOBIN 31.2 pg (25-34); MEAN CORPUSCULAR HGB CONC 32.7 g/dl (32-36); MEAN PLATELET VOLUME 11.4 fL (7.4-10.4); PLATELET COUNT 175 K/uL (130-400); RED CELL DISTRIBUTION WIDTH CV 13.7 % (11.5-14.5); RED CELL DISTRIBUTION WIDTH SD 47.8 fL (36.4-46.3); WHITE BLOOD COUNT 7.25 K/uL (4.8-10.8)
[2017-05-16 07:28] LABS: CALCIUM 8.3 mg/dl (8.5-10.1); CREATININE 1.08 mg/dl (0.60-1.20); POTASSIUM 4.5 mmol/L (3.5-5.1)
[2017-05-16 07:52] VITALS: BP 177/77; PULSE 68; TEMP 36.8; O2SAT 96
[2017-05-16] MEDS: MEMANTINE 5 MG TAB PO SCH (08:43)
[2017-05-16] MEDS: PANTOprazole SOD 40 MG TAB PO SCH (08:43)
[2017-05-16] MEDS: METOPROLOL TARTRATE 25 MG TAB PO SCH (08:43)
[2017-05-16] MEDS: CHOLECALCIFEROL 1000 INTER.UNIT TAB PO SCH (08:43)
[2017-05-16] MEDS: INSULIN ASPART 100 UNITS/ML 3 ML PEN SC SCH (08:45)
[2017-05-16] MEDS ORDERED: ASCORBIC ACID 500 MG TAB PO SCH (09:00)
[2017-05-16] MEDS ORDERED: CITALOPRAM 40 MG TAB PO SCH (09:00)
[2017-05-16] MEDS ORDERED: QUETIAPINE FUMARATE 25 MG TAB PO SCH (09:00)
[2017-05-16] MEDS ORDERED: ASPIRIN 81 MG ECTAB PO SCH (09:00)
--- NOTE | 2017-05-16 09:30 | ECHOCARDIOGRAM REPORT ---
*NOTICE TO RECEIVING [employer] This information is strictly Confidential and protected under [place] law. [place] law prohibits you from making any further disclosure of this information unless further disclosure is expressly permitted by the written consent of the person to whom it pertains or is authorized by law. A general authorization for the release of medical or other information is not sufficient for this purpose. Hospital accepts no responsibility if the information is made available to any other person, INCLUDING THE PATIENT. Interpretation Summary * Name: BUD BHATIA Study Date: 05/16/2017 06:59 AM BP: 177/77 mmHg * Patient Location: C.2T\S\S239\S\2 HR: 65 * : 1940 (M/d/yyyy) Gender: Female Height: 60 in * Age: 77 yrs Ethnicity: CA Weight: 196 lb * Ordering Physician: Nadia Lizarraga * Referring Physician: Self, Referred * Performed By: Gera Washington RDCS * * Reason For Study: Chest pain * BSA: 1.9 m2 * -- Conclusions -- * The left ventricle is normal in size. * There is mild concentric left ventricular hypertrophy. * The basal septum is thickened and angulated consistent with sigmoid septum. * There is borderline global hypokinesis of the left ventricle. * No regional wall motion abnormalities noted. * Ejection Fraction = 45-50%. * The left atrium is moderately dilated. * There is moderate focal calcifiction of the non coronary cusp of the aortic valve * Mild aortic regurgitation. Procedure Details * A complete two-dimensional transthoracic echocardiogram was performed (2D, M-mode, Doppler and color flow Doppler). * The study was technically difficult, but visualization was adequate with the administration of Definity ultrasound contrast. * A contrast injection of Definity was performed to improve assessment of LV function. * Contrast was injected into an intravenous site in the right arm. * One vial of Definity ultrasound contrast was diluted in normal saline to a total volume of 10 ml. A total of '2' ml of solution was administered during imaging. * Lot # [id number] of Definity utilized for procedure. * Expiration date . * The attending nurse who injected the contrast agent was Marifer Tse RN. Left Ventricle * The left ventricle is normal in size. * There is mild concentric left ventricular hypertrophy. * The basal septum is thickened and angulated consistent with sigmoid septum. * Ejection Fraction = 45-50%. * There is borderline global hypokinesis of the left ventricle. * No regional wall motion abnormalities noted. Right Ventricle * The right ventricle is normal in size and function. Atria * The left atrium is moderately dilated. * Right atrial size is normal. * No ASD detected; PFO is not assessed. Mitral Valve * The mitral valve anatomy is normal. * There is no mitral valve stenosis. * There is trace mitral regurgitation. Tricuspid Valve * The tricuspid valve anatomy is normal. * There is no tricuspid stenosis. * There is trace tricuspid regurgitation. Aortic Valve * The aortic valve is trileaflet. * There is moderate focal calcifiction of the non coronary cusp of the aortic valve * No hemodynamically significant valvular aortic stenosis. * Mild aortic regurgitation. Pulmonic Valve * The pulmonic valve is not well visualized. Great Vessels * The aortic root is normal size. Pericardium/Pleural * There is no pericardial effusion. Great Vessels * Normal inferior vena cava diameter and respiratory variation suggests normal central venous pressure. Left Ventricular Diastolic Function * Diastolic dysfunction, Grade II (pseudonormalization pattern). MMode 2D Measurements and Calculations IVSd 1.4 cm IVSs 1.9 cm LVIDd 4.1 cm LVIDs 2.8 cm LVPWd 1.4 cm LVPWs 1.9 cm IVS/LVPW 0.97 FS 31.3 % EDV(Teich) 74.8 ml ESV(Teich) 30.2 ml EF(Teich) 59.6 % EDV(cubed) 69.7 ml ESV(cubed) 22.5 ml EF(cubed) 67.6 % % IVS thick 42.5 % % LVPW thick 35.3 % LV mass(C)d 211.2 grams LV mass(C)dI 114.1 grams/m\S\2 LV mass(C)s 225.1 grams LV mass(C)sI 121.6 grams/m\S\2 SV(Teich) 44.6 ml SI(Teich) 24.1 ml/m\S\2 SV(cubed) 47.1 ml SI(cubed) 25.5 ml/m\S\2 EPSS 1.1 cm Ao root diam 2.8 cm Ao root area 6.4 cm\S\2 ACS 1.8 cm LA dimension 4.9 cm asc Aorta Diam 3.5 cm LA/Ao 1.7 LVOT diam 1.9 cm LVOT area 2.8 cm\S\2 LVAd ap4 26.1 cm\S\2 LVLd ap4 6.6 cm EDV(MOD-sp4) 81.9 ml EDV(sp4-el) 87.5 ml LVAs ap4 18.4 cm\S\2 LVLs ap4 6.5 cm ESV(MOD-sp4) 41.6 ml ESV(sp4-el) 43.9 ml EF(MOD-sp4) 49.1 % EF(sp4-el) 49.9 % LVAd ap2 21.9 cm\S\2 LVLd ap2 6.9 cm EDV(MOD-sp2) 56.1 ml EDV(sp2-el) 58.9 ml LVAs ap2 14.6 cm\S\2 LVLs ap2 6.1 cm ESV(MOD-sp2) 30.2 ml ESV(sp2-el) 29.7 ml EF(MOD-sp2) 46.1 % EF(sp2-el) 49.5 % LVLd %diff 4.2 % EDV(MOD-bp) 68.6 ml LVLs %diff -7.16 % ESV(MOD-bp) 35.6 ml EF(MOD-bp) 48.2 % SV(MOD-sp4) 40.2 ml SI(MOD-sp4) 21.7 ml/m\S\2 SV(MOD-sp2) 25.9 ml SI(MOD-sp2) 14.0 ml/m\S\2 SV(MOD-bp) 33.1 ml SI(MOD-bp) 17.9 ml/m\S\2 SV(sp4-el) 43.6 ml SI(sp4-el) 23.6 ml/m\S\2 SV(sp2-el) 29.2 ml SI(sp2-el) 15.8 ml/m\S\2 Doppler Measurements and Calculations MV E max warren 81.3 cm/sec MV A max warren 76.6 cm/sec MV E/A 1.1 MV dec time 0.15 sec Ao V2 max 85.9 cm/sec Ao max PG 3.0 mmHg Ao max PG (full) 0.87 mmHg GRACIE(V,A) 2.4 cm\S\2 GRACIE(V,D) 2.4 cm\S\2 LV V1 max PG 2.1 mmHg LV V1 max 72.2 cm/sec
[2017-05-16 12:03] VITALS: BP 134/82; PULSE 65; TEMP 36.3; O2SAT 95
[2017-05-16] MEDS ORDERED: ISOSORBIDE MONONITRATE 30 MG TABCR PO ONE (12:30)
--- NOTE | 2017-05-16 13:34 | Progress Note ---
Subjective Date of Service: May 16, 2017. Subjective Pt evaluation today including: conversation w/ patient, physical exam, lab review, review of studies, conversation w/ software developer consultant, review of inpatient medication list Problem List Medical Problems: (1) Small bowel obstruction Status: Acute (2) Upper GI bleed Status: Acute (3) Vaginal irritation from pessary Status: Acute Review of Systems Constitutional: No fever, No chills Respiratory: No cough, No sputum, No wheezing, No shortness of breath, No dyspnea on exertion, No dyspnea at rest, No hemoptysis Cardiac: No chest pain (resolved), No edema, No palpitations Abdomen: No pain, No nausea, No vomiting, No diarrhea Female : No dysuria, No urinary frequency Psychiatric: No depression symptoms, No anxiety, No insomnia Heme: No abnormal bleeding/bruising Medications Current Inpatient Medications Medications (Trade) Dose Ordered Sig/Sammy Route Start Time Stop Time Status Last Admin Dose Admin Enoxaparin Sodium (Lovenox Inj) 40 mg QPM SC 05/15/17 21:00 06/14/17 20:59 05/15/17 20:26 40 MG Acetaminophen (Tylenol Tab) 650 mg Q4H PRN PO 05/15/17 16:45 06/14/17 16:44 Ondansetron HCl (Zofran Inj) 4 mg Q6H PRN IV 05/15/17 16:45 06/14/17 16:44 Nitroglycerin (Nitrostat Tab) 0.4 mg UD PRN SL 05/15/17 16:45 06/14/17 16:44 Insulin Glargine (Lantus Solostar Pen) 10 units HS SC 05/15/17 21:00 06/14/17 20:59 05/15/17 20:28 10 UNITS Insulin Aspart (novoLOG ASPART) SLIDING SCALE If C... ACHS SC 05/15/17 21:00 06/14/17 20:59 05/16/17 08:45 1 UNITS Glucose (Glucose 40% Gel) 15-30 GRAMS 15 GRAMS... UD PRN PO 05/15/17 16:45 06/14/17 16:44 Glucose (Glucose Chew Tab) 4-8 Tablets 4 Tabl... UD PRN PO 05/15/17 16:45 06/14/17 16:44 Dextrose (Dextrose 50% 50ML Syringe) 25-50ML OF 50% DW IV FOR... UD PRN IV 05/15/17 16:45 06/14/17 16:44 Glucagon (Glucagon Inj) 1 mg UD PRN SQ 05/15/17 16:45 06/14/17 16:44 Aspirin (Ecotrin Tab) 81 mg DAILY PO 05/16/17 09:00 06/15/17 08:59 05/16/17 08:43 81 MG Atorvastatin Calcium (Lipitor Tab) 80 mg QPM PO 05/15/17 21:00 06/14/17 20:59 05/15/17 20:18 80 MG Cholecalciferol (Vitamin D Tab) 1,000 inter.unit BID PO 05/15/17 21:00 06/14/17 20:59 05/16/17 08:43 1,000 INTER.UNIT Citalopram Hydrobromide (celeXA TAB) 40 mg QAM PO 05/16/17 09:00 06/15/17 08:59 05/16/17 08:43 40 MG Levothyroxine Sodium (Synthroid Tab) 137 mcg DAILYBB PO 05/16/17 06:00 06/15/17 06:59 05/16/17 06:35 137 MCG Memantine (Namenda Tab) 5 mg BID PO 05/15/17 21:00 06/14/17 20:59 05/16/17 08:43 5 MG Metoprolol Tartrate (Lopressor Tab) 12.5 mg BID PO 05/15/17 21:00 06/14/17 20:59 05/16/17 08:43 12.5 MG Multivitamins (Multivitamin Tab) 1 tab QPM PO 05/15/17 21:00 06/14/17 20:59 05/15/17 20:24 1 TAB Quetiapine Fumarate (seroQUEL TAB) 25 mg QAM PO 05/16/17 09:00 06/15/17 08:59 05/16/17 08:43 25 MG Quetiapine Fumarate (seroQUEL TAB) 50 mg QPM PO 05/15/17 21:00 06/14/17 20:59 05/15/17 20:19 50 MG Trazodone HCl (Desyrel Tab) 100 mg HS PO 05/15/17 21:00 06/14/17 20:59 05/15/17 20:21 100 MG Ascorbic Acid (Vitamin C Tab) 1,000 mg QAM PO 05/16/17 09:00 06/15/17 08:59 05/16/17 08:43 1,000 MG Donepezil HCl (Aricept Tab) 10 mg HS PO 05/15/17 21:00 06/14/17 20:59 05/15/17 20:17 10 MG Pantoprazole Sodium (Protonix Tab) 40 mg BID PO 05/15/17 21:00 06/14/17 20:59 05/16/17 08:43 40 MG Miscellaneous (Iv Fluids Completed) 1 ea PRN PRN N/A 05/15/17 18:30 05/15/18 18:29 Miscellaneous Information (Order Awaiting Action) 1 ea QS N/A 05/16/17 00:00 06/15/17 00:00 Isosorbide Mononitrate (Imdur Ext Rel Tab) 60 mg HS PO 05/16/17 21:00 06/14/17 17:29 Objective Vital Signs Date Time Temp Pulse Resp B/P (MAP) Pulse Ox O2 Delivery O2 Flow Rate FiO2 05/16/17 12:03 36.3 65 24 134/82 (99) 95 Room Air 05/16/17 12:00 Room Air 05/16/17 08:00 Room Air 05/16/17 07:52 36.8 68 18 177/77 (110) 96 Room Air 05/16/17 04:00 97 Room Air 05/16/17 03:45 36.7 65 24 141/60 (87) 94 Room Air 05/16/17 00:00 97 Room Air 05/15/17 23:25 36.7 75 20 119/71 (87) 94 Room Air 05/15/17 23:00 132/63 (86) 95 05/15/17 20:00 97 Room Air 05/15/17 20:00 37.2 65 18 182/68 (106) 95 Room Air 05/15/17 18:00 36.7 65 17 176/81 97 Room Air 05/15/17 17:10 36.6 65 16 174/73 97 Room Air 05/15/17 16:02 65 16 177/77 96 Room Air 05/15/17 14:41 65 05/15/17 14:26 65 20 145/87 94 Room Air 05/15/17 14:25 96 Room Air Physical Exam General Appearance: no apparent distress, + obese Eyes: normal inspection ENT: hearing grossly normal Neck: supple Respiratory/Chest: chest non-tender, lungs clear, normal breath sounds, no respiratory distress, no accessory muscle use Cardiovascular: regular rate, rhythm, no edema, + systolic murmur (mild ejection systolic murmur, loud S2) Extremities: normal range of motion, non-tender, normal inspection, no pedal edema, no calf tenderness, + pertinent finding (+scarring b/l LE) Neurologic/Psychiatric: fuel attendant II-XII nml as tested, no motor/sensory deficits, alert, normal mood/affect Laboratory Results Last 24 Hours Test 05/15/17 14:28 05/15/17 19:48 05/15/17 20:14 05/16/17 01:52 White Blood Count 8.64 K/uL Red Blood Count 4.04 M/uL Hemoglobin 12.5 g/dL Hematocrit 38.5 % Mean Corpuscular Volume 95.3 fL Mean Corpuscular Hemoglobin 30.9 pg Mean Corpuscular Hemoglobin Concent 32.5 g/dl Platelet Count 170 K/uL Mean Platelet Volume 11.3 fL Neutrophils (%) (Auto) 83.1 % Lymphocytes (%) (Auto) 9.8 % Monocytes (%) (Auto) 5.8 % Eosinophils (%) (Auto) 0.9 % Basophils (%) (Auto) 0.2 % Neutrophils # (Auto) 7.17 K/uL Lymphocytes # (Auto) 0.85 K/uL Monocytes # (Auto) 0.50 K/uL Eosinophils # (Auto) 0.08 K/uL Basophils # (Auto) 0.02 K/uL RDW Standard Deviation 47.1 fL RDW Coefficient of Variation 13.6 % Immature Granulocyte % (Auto) 0.2 % Immature Granulocyte # (Auto) 0.02 K/uL Prothrombin Time 10.1 SECONDS Prothromb Time International Ratio 1.0 Sodium Level 138 mmol/L Potassium Level 4.7 mmol/L Chloride Level 106 mmol/L Carbon Dioxide Level 27 mmol/L Anion Gap 5.0 mmol/L Blood Urea Nitrogen 28 mg/dl Creatinine 1.06 mg/dl Est Creatinine Clear Calc Drug Dose 43.4 ml/min Estimated GFR () 58.2 Estimated GFR (Non- 50.3 BUN/Creatinine Ratio 26.5 Random Glucose 220 mg/dl Calcium Level 8.6 mg/dl Magnesium Level 1.9 mg/dl Total Bilirubin 0.2 mg/dl Direct Bilirubin < 0.1 mg/dl Aspartate Amino Transf (AST/SGOT) 34 U/L Alanine Aminotransferase (ALT/SGPT) 38 U/L Alkaline Phosphatase 125 U/L Troponin I < 0.015 ng/ml < 0.015 ng/ml < 0.015 ng/ml Pro-B-Type Natriuretic Peptide 959 pg/ml Total Protein 6.9 gm/dl Albumin 2.7 gm/dl Lipase 112 U/L Creatine Kinase MB 1.7 ng/ml 1.5 ng/ml Creatine Kinase MB Ratio Bedside Glucose 133 mg/dl Test 05/16/17 06:23 05/16/17 07:04 05/16/17 11:15 White Blood Count 7.25 K/uL Red Blood Count 3.88 M/uL Hemoglobin 12.1 g/dL Hematocrit 37.0 % Mean Corpuscular Volume 95.4 fL Mean Corpuscular Hemoglobin 31.2 pg Mean Corpuscular Hemoglobin Concent 32.7 g/dl RDW Standard Deviation 47.8 fL RDW Coefficient of Variation 13.7 % Platelet Count 175 K/uL Mean Platelet Volume 11.4 fL Sodium Level 137 mmol/L Potassium Level 4.5 mmol/L Chloride Level 103 mmol/L Carbon Dioxide Level 28 mmol/L Anion Gap 6.0 mmol/L Blood Urea Nitrogen 26 mg/dl Creatinine 1.08 mg/dl Est Creatinine Clear Calc Drug Dose 43.1 ml/min Estimated GFR () 56.9 Estimated GFR (Non- 49.1 BUN/Creatinine Ratio 24.3 Random Glucose 163 mg/dl Calcium Level 8.3 mg/dl Bedside Glucose 175 mg/dl 162 mg/dl Assessment and Plan This is a 77 year old female with a PMH of CAD s/p CABG x4, sick sinus syndrome s/p permanent pacemaker, hx. of paroxysmal atrial fibrillation, insulin dependent DM2, HTN, CKD stage 3, HLD, hypothyroidism - presents with chest pain Chest Pain r/o ACS in the setting of CAD and hx. of CABG x4 appreciate cardiology input cardiac enzymes negative x3, EKG with no changes, echo with no significant changes echo shows Ejection Fraction = 45-50%; The left atrium is moderately dilated plan is to increase metoprolol to 25mg in AM and 12.5mg in the PM increased Imdur from 30mg to 60mg continue aspirin and high intensity statin outpatient cardiology and PCP follow-up Insulin Dependent DM2 Ha1c as outpatient is 8.0% could use tighter control as outpatient continue ophthalmology and podiatry as scheduled I'll continue her home regimen for discharge Sick Sinus Syndrome s/p pacemaker; pacemaker interrogation with no additional findings HTN blood pressure was elevated on presentation will increase metoprolol and monitor this as outpatient DVT ppx Lovenox FULL CODE
[2017-05-16] MEDS ORDERED: METO25TA56 PO (13:37)
[2017-05-16] MEDS ORDERED: ISOS60TA25 PO (13:37)
[2017-05-16] MEDS ORDERED: LPR25 PO (13:38)
--- NOTE | 2017-05-16 13:40 | Discharge Instructions ---
Discharge Instructions Date of Service May 16, 2017. Admission Reason for Admission: Chest Pain Discharge Discharge Diagnosis / Problem: Chest Pain Discharge Goals Goal(s): Decrease discomfort, Improve function, Diagnostic testing, Therapeutic intervention Activity Recommendations Activity Limitations: resume your previous activity . Instructions / Follow-Up Instructions / Follow-Up Please follow-up with Dr. Hogan (covering for Dr. Manley) on May 19 at 2:45PM * Your dose of Isosorbide Mononitrate has changed from 30mg to 60mg * Your dose of Lopressor (metoprolol) has changed to one tablet in the morning ( 25mg) and half a tablet in the evening (12.5mg) * Please follow-up with cardiology in the next month Current Hospital Diet Patient's current hospital diet: AHA Diet (Heart Healthy), Diabetes Type 2 Diet Discharge Diet Recommended Diet: AHA Diet (Heart Healthy), Diabetes Type 2 Diet Pending Studies Studies pending at discharge: no Medical Emergencies . Who to Call and When: Medical Emergencies: If at any time you feel your situation is an emergency, please call 911 immediately. . Non-Emergent Contact Non-Emergency issues call your: Primary Care Provider, Senior Accounting Clerk . . "Provider Documentation" section prepared by Vicky Adan. . VTE Core Measure Inpt VTE Proph given/why not?: Enoxaparin (Lovenox)SQ
--- NOTE | 2017-05-16 13:42 | Discharge Summary ---
Discharge Summary Date of Service May 16, 2017. Discharge Summary Admission Date: May 15, 2017 at 16:36 Discharge Date: May 16, 2017 Discharge Disposition: Home Principal Diagnosis: Chest Pain, possible Ischemia CAD s/p CABG Insulin Dependent DM2 HTN Hypothyroidism Sick Sinus Syndrome s/p Pacemaker Medication Reconciliation New Medications: Metoprolol Tartrate (Lopressor) 25 Mg Tab 0.5 TAB PO QPM for 30 Days, #15 TAB Changed Medications: Isosorbide Mononitrate Ext Rel (Imdur Ext Rel) 60 Mg Ertab 60 MG PO QAM for 30 Days, #30 TAB (Changed from: Isosorbide Mononitrate Ext Rel (Imdur Ext Rel) 30 Mg Tabcr 1 Tab PO HS) Metoprolol Tartrate (Lopressor) (Lopressor) 25 Mg Tab 1 TAB PO QAM for 30 Days, #30 TABS (Changed from: 0.5 TAB; BID) Continued Medications: Ascorbic Acid (Vitamin C) 1,000 Mg Tab 1 TAB PO QAM Aspirin (Aspirin Ec) 81 Mg Tab 81 MG PO DAILY Atorvastatin (Lipitor) 80 Mg Tab 80 MG PO QPM Cholecalciferol (Vitamin D) 1,000 Unit Tab 1000 UNITS PO BID Citalopram (Citalopram Hydrobromide) 40 Mg Tab 1 TAB PO QAM Donepezil Hydrochloride (Donepezil Hcl) 10 Mg Tab 1 TAB PO HS Ferrous Sulfate (Ferrous Sulfate) 325 Mg Tab 65 MG PO QAM Insulin Glargine (Lantus) 100 Unit/Ml Inj 14 UNITS SC HS Insulin Lispro (Human) (Humalog Kwikpen) 100 Unit/Ml Inj 1 DOSE SC TID ADJUSTS PER SLIDING SCALE Levothyroxine Sodium (Levothyroxine Sodium) 137 Mcg Tab 137 MG PO QAM Memantine (Namenda) 5 Mg Tab 5 MG PO BID Multiple Vitamin (Multivitamin) 1 Tab Tab 1 TAB PO QPM Nitroglycerin (Nitrostat) 0.4 Mg Tab 0.4 MG UT PRN Omeprazole (Prilosec) 40 Mg Cap 40 MG PO BID Quetiapine Fumarate (Seroquel) 25 Mg Tab 25 MG PO QAM Quetiapine Fumarate (Seroquel) 50 Mg Tab 50 MG PO QPM Trazodone Hcl (Trazodone) 50 Mg Tab 100 MG PO HS Admission Information HPI (per Admitting provider): 77 year old female who presents to the ED with chest pain. At around 1100 this morning, patient developed a left sided chest pressure. She rates the pain # 4/ 10. No radiation of the pain into the jaw, neck, shoulder, or arm. Pain occurred at rest. She took SL nitro and pain was resolved. thought she was breathing a littler heavier than normal. No nausea, diaphoresis, lightheadedness, or dizziness. Patient reports she has been feeling well recently. She chronically sleeps in the a recliner. She frequently climbs 14 steps in her home without difficulty. She denies orthopnea and lower extremity edema. No abdominal pain, vomiting, or diarrhea. She denies fever and chills. No urinary symptoms. In the ED, patient's initial troponin is negative and EKG does not show any acute ST changes. Physical Exam (per Admitting): General Appearance: WD/WN, no apparent distress Head: normocephalic, atraumatic Eyes: normal inspection, EOMI, sclerae normal ENT: hearing grossly normal, + pertinent finding Neck: supple, no JVD, trachea midline Respiratory/Chest: lungs clear, normal breath sounds, no respiratory distress Cardiovascular: regular rate, rhythm, no edema, normal peripheral pulses Abdomen/GI: normal bowel sounds, non tender, soft, no organomegaly Extremities/Musculoskelatal: normal inspection, no calf tenderness, normal capillary refill Neurologic/Psych: no motor/sensory deficits, alert, normal mood/affect, oriented x 3 Skin: normal color, warm/dry Hospital Course This is a 77 year old female with a PMH of CAD s/p CABG x4, sick sinus syndrome s/p permanent pacemaker, hx. of paroxysmal atrial fibrillation, insulin dependent DM2, HTN, CKD stage 3, HLD, hypothyroidism - presents with chest pain Chest Pain r/o ACS in the setting of CAD and hx. of CABG x4 appreciate cardiology input cardiac enzymes negative x3, EKG with no changes, echo with no significant changes echo shows Ejection Fraction = 45-50%; The left atrium is moderately dilated plan is to increase metoprolol to 25mg in AM and 12.5mg in the PM increased Imdur from 30mg to 60mg continue aspirin and high intensity statin outpatient cardiology and PCP follow-up Insulin Dependent DM2 Ha1c as outpatient is 8.0% could use tighter control as outpatient continue ophthalmology and podiatry as scheduled I'll continue her home regimen for discharge Sick Sinus Syndrome s/p pacemaker; pacemaker interrogation with no additional findings HTN blood pressure was elevated on presentation will increase metoprolol and monitor this as outpatient DVT ppx Lovenox FULL CODE Total time spent on discharge = 25 minutes This includes examination of the patient, discharge planning, medication reconciliation, and communication with other providers. Discharge Instructions Please follow-up with Dr. Hogan (covering for Dr. Manley) on May 19 at 2:45PM * Your dose of Isosorbide Mononitrate has changed from 30mg to 60mg * Your dose of Lopressor (metoprolol) has changed to one tablet in the morning ( 25mg) and half a tablet in the evening (12.5mg) * Please follow-up with cardiology in the next month
[2017-05-16 13:55] VITALS: BP 134/82; PULSE 65; TEMP 36.3; O2SAT 95
--- NOTE | 2017-05-16 16:03 | CARDIOLOGY CONSULTATION ---
DATE OF CONSULTATION: 05/16/2017 REFERRING: Vicky Adan DO PRIMARY CARE PHYSICIAN: Marissa Manley MD INDICATIONS: Chest pain. HISTORY OF PRESENT ILLNESS: The patient is a 77-year-old female, well known to me whose history is notable for: 1. Atherosclerotic coronary artery disease, status post remote myocardial infarction in 1997, subsequent coronary bypass grafting same setting x4. 2. Stable class 2 angina pectoris. 3. Hypertension. 4. Diabetes mellitus. 5. Past sick sinus syndrome, status post dual-chamber pacemaker insertion, last generator exchange 2013 with [employer] model Advantio [id number]. 6. Past history of hyperthyroidism, status post radioactive iodine therapy. 7. History of gastric ulcer and past surgical resection in 2016. 8. Atherosclerotic carotid disease, status post right carotid endarterectomy in 2016. The patient presents today having been hospitalized a day prior after an episode of substernal chest discomfort, observed by family. The patient's symptoms lasted approximately 10 minutes. She was given 1 sublingual nitroglycerin with resolve, and patient was brought to the Emergency Room. Initial serial EKGs and enzymes have not demonstrated evidence of injury or ischemia. She currently feels well. Notes no dizziness, lightheadedness, syncope, near syncope, orthopnea, PND or peripheral edema. She is active about her home to low level degree, climbs stairs, ambulates with cane. Notes no recent fevers, chills or infections. Notes some no melena, hematochezia, dysuria or hematuria. Notes no indigestion or heartburn. Appetite and weight have been generally stable, weight slightly down ____ effort. PAST MEDICAL HISTORY: As described above. In addition patient carries a history of mild dementia, past history of depression, chronic osteoporosis, and dyslipidemia. PAST SURGICAL HISTORY: Notable for described coronary bypass grafting in 1997, past history of cystocele repair, panniculectomy with hernia repair in 2005, gastric bypass prior to that in 2002, dual chamber pacemaker insertion, past cholecystectomy, carotid endarterectomy. FAMILY HISTORY: Notable for hypertension. SOCIAL HISTORY: The patient is cared for closely at home by family. She is a nonsmoker since 1968. Uses no alcoholic beverages. As noted, she is mildly active about her home. PHYSICAL EXAMINATION: GENERAL: The patient is currently comfortable without complaint. VITAL SIGNS: Reveal heart rate of 72, blood pressure is 134/82 with blood pressures on initial presentation elevated to 199/64. HEENT: Normocephalic and atraumatic. Nares without discharge. Throat was clear. NECK: There is healed carotid endarterectomy scar. There is no jugular venous distention. LUNGS: Revealed generally clear. CARDIOVASCULAR: Regular with normal S1, S2. There is no murmur, gallop or rub. ABDOMEN: Soft, nondistended. There is no palpable hepatosplenomegaly. There is no abdominal tenderness. EXTREMITIES: Without cyanosis or clubbing. There is no cord or Homans sign. There is no edema. LABORATORY DATA: Telemetry reveals no arrhythmias. EKG on presentation revealed atrial paced rhythm with nonspecific ST segment changes. No acute ischemic findings. Serial EKG this morning demonstrates similar tracing with artifact at baseline. Cardiac enzymes are notable for negative troponin x3. White cell count is 7.2, hemoglobin 12.1. Sodium is 137, potassium 4.5, chloride is 103, bicarbonate is 28, BUN is 26, creatinine is 1.0. Chest x-ray revealed no infiltrate or edema. Echocardiogram today demonstrates low normal LV systolic function, EF 45% to 50% with borderline global hypokinesis. Focal calcification of aortic valve with mild aortic insufficiency without significant change from prior study of 2016. IMPRESSION: Complex 77-year-old female with underlying history of ischemic heart disease and vascular disease, who had a 10-minute episode of mid substernal chest pain day prior, relieved with 1 sublingual nitroglycerin. Enzymes, EKGs and echocardiogram are not dramatically changed to suggest acute ischemia or myocardial infarction. Discussed options of management with patient and family including stress testing to further delineate cardiac risk. The patient wishes to be discharged to home on medical therapy which appears appropriate at this time. We will plan on increasing Imdur to 60 mg per day, additional 30 mg per day given. We will increase metoprolol to 25 mg a.m. and 12.5 mg p.m. All other medications will be continued as prescribed. Anticipate followup visit in cardiology clinic in the next month's time. Have noted our evaluation is not excluded ischemic risk and if patient would have symptoms, she should return for further evaluation. Family and patient are agreeable with current plans.
[2017-05-16] MEDS ORDERED: ISOSORBIDE MONONITRATE 60 MG TABCR PO SCH (21:00)
== END 2017-05-16 14:20 | disposition home or self-care (01) ==
LOC: C.EDB 12:53 → C.2T 16:36 → ENRESERV 16:56
PROVIDERS: ADMIT Hospitalist; ATTEND Family Medicine
DX: R07.9 Chest pain, unspecified (principal); I25.10 Atherosclerotic heart disease of native coronary artery without angina pectoris; I25.9 Chronic ischemic heart disease, unspecified; I12.9 Hypertensive chronic kidney disease with stage 1 through stage 4 chronic kidney disease, or unspecified chronic kidney disease; N18.3 Chronic kidney disease, stage 3 (moderate); E11.319 Type 2 diabetes mellitus with unspecified diabetic retinopathy without macular edema; F03.90 Unspecified dementia, unspecified severity, without behavioral disturbance, psychotic disturbance, mood disturbance, and anxiety; E03.9 Hypothyroidism, unspecified; G30.9 Alzheimer's disease, unspecified; F02.80 Dementia in other diseases classified elsewhere, unspecified severity, without behavioral disturbance, psychotic disturbance, mood disturbance, and anxiety; F32.9 Major depressive disorder, single episode, unspecified; E78.5 Hyperlipidemia, unspecified; M81.0 Age-related osteoporosis without current pathological fracture; I25.2 Old myocardial infarction; Z98.84 Bariatric surgery status; Z87.11 Personal history of peptic ulcer disease; Z95.1 Presence of aortocoronary bypass graft; Z95.0 Presence of cardiac pacemaker; Z90.49 Acquired absence of other specified parts of digestive tract; Z79.4 Long term (current) use of insulin; Z79.82 Long term (current) use of aspirin; Z87.891 Personal history of nicotine dependence; Z82.49 Family history of ischemic heart disease and other diseases of the circulatory system

== ENCOUNTER 2017-06-07 14:03 | Emergency (ER) | payer OTHER, MEDICARE ==
[~2017-06-07] VITALS: Ht 157.5 cm; Wt 90.7 kg
[~2017-06-07 14:03] MED LIST changes: +ISOS60TA25 PO; -ISR/30 PO; +LPR25 PO; -TYLOTC500 PO
[2017-06-07 14:22] VITALS: O2SAT 93
--- NOTE | 2017-06-07 14:32 | EMERGENCY ROOM VISIT NOTE ---
History Report prepared by Juan: Antonieta Archer Under the Supervision of: Dr. Apolinar Roberts M.D. First contact with patient: 14:21 Chief Complaint: CHEST PAIN Stated Complaint: CHEST PAIN Nursing Triage Summary: patient arrived via ALS. patient lives at home with . patient c/o midsternal chest pain and SOB with excertion around 1100. patient took 2 nitros with relief. family called EMS to r/o chest pain. On arrival to ER patient denies chest pain at this time History of Present Illness The patient is a 77 year old female who presents to the Emergency Room with complaints of an episode of chest tightness and shortness of breath occurring at 11:00 am this morning. Per family, the patient ate lunch and when she got up and walked to the living room to sit down she started to complain of chest heaviness and shortness of breath. The patient had two nitroglycerin which relieved her pain. Presently, the patient denies any chest pain or abdominal pain.She denies any blood in stool or urine. The patient has a history of a quadruple bypass, a second pacemaker, SBO, cholecystectomy, and dementia. She is not on any blood thinners. Source of History: patient, family Onset: 11 am Position: chest Quality: other (tightness) Timing: other (episode) Associated Symptoms: + chest pain, + SOB, No abdominal pain Review of Systems See HPI for pertinent positives and negatives. A total of ten systems were reviewed and were otherwise negative. Past Medical & Surgical Medical Problems: (1) CAD (coronary artery disease) (2) Carotid stenosis (3) CKD (chronic kidney disease), stage III (4) Depression (5) Diabetic retinopathy (6) DM type 2 (diabetes mellitus, type 2) (7) Dyslipidemia (8) Gout (9) Hyperlipidemia (10) Hypertension (11) Hypothyroidism (12) Osteoporosis (13) Sick sinus syndrome (14) UGIB (upper gastrointestinal bleed) Surgical Problems: (1) Hx of cholecystectomy (2) Hx of gastric bypass (3) Implantation of cardiac pacemaker (4) S/P CABG x 4 (5) S/P cataract surgery (6) S/p cystocele repair (7) S/p excision of breast lesion (8) S/p panniculectomy with hernia repair Family History FH: dementia MOTHER Social History Smoking Status: Former Smoker Alcohol Use: none Housing Status: lives with family Current/Historical Medications Scheduled Ascorbic Acid (Vitamin C), 1 TAB PO QAM Aspirin (Aspirin Ec), 81 MG PO DAILY Atorvastatin (Lipitor), 80 MG PO QPM Cholecalciferol (Vitamin D), 1,000 UNITS PO BID Citalopram (Citalopram Hydrobromide), 1 TAB PO QAM Donepezil Hydrochloride (Donepezil Hcl), 1 TAB PO HS Ferrous Sulfate (Ferrous Sulfate), 65 MG PO QAM Insulin Glargine (Lantus), 14 UNITS SC HS Insulin Lispro (Human) (Humalog Kwikpen), 1 DOSE SC TID Isosorbide Mononitrate Ext Rel (Imdur Ext Rel), 60 MG PO QAM Levothyroxine Sodium (Levothyroxine Sodium), 137 MG PO QAM Memantine (Namenda), 5 MG PO BID Metoprolol Tartrate (Lopressor), 0.5 TAB PO QPM Metoprolol Tartrate (Lopressor) (Lopressor), 1 TAB PO QAM Multiple Vitamin (Multivitamin), 1 TAB PO QPM Nitroglycerin (Nitrostat), 0.4 MG UT PRN Omeprazole (Prilosec), 40 MG PO BID Quetiapine Fumarate (Seroquel), 25 MG PO QAM Quetiapine Fumarate (Seroquel), 50 MG PO QPM Trazodone Hcl (Trazodone), 100 MG PO HS Allergies Coded Allergies: Niacin (Verified Allergy, Severe, HNT, 05/15/17) Dust (Verified Allergy, Intermediate, ASTHMA SYMPTOMS, 05/15/17) Oxycodone (Verified Adverse Reaction, Intermediate, UNABLE TO URINATE, ) Uncoded Allergies: GORE KWESI MESH (Allergy, Severe, SEVERE INFECTION/KEEPS WOUND FROM HEALING, 10/08/12) Physical Exam Vital Signs Date Time Temp Pulse Resp B/P (MAP) Pulse Ox O2 Delivery O2 Flow Rate FiO2 06/07/17 18:16 36.5 65 19 175/86 96 06/07/17 18:01 175/86 06/07/17 17:40 65 19 96 06/07/17 17:31 166/82 06/07/17 17:10 65 19 97 3/11/18 17:05 162/75 06/07/17 16:33 65 30 96 06/07/17 16:31 153/76 06/07/17 16:09 145/72 06/07/17 16:03 65 23 96 06/07/17 15:33 65 20 95 06/07/17 14:33 65 22 06/07/17 14:22 93 Room Air 06/07/17 14:19 93 Room Air 06/07/17 14:16 65 06/07/17 14:10 36.5 65 20 166/80 96 Room Air 06/07/17 14:06 166/80 Physical Exam Physical Exam GENERAL: She appears well-developed and well-nourished. She does not appear in any acute distressed. ____ HENT: Exam performed. Head: Normocephalic and atraumatic. Right Ear: External ear normal. No mastoid tenderness. Left Ear: External ear normal. No mastoid tenderness. Mouth/Throat: The oropharynx is clear and moist. No trismus in the jaw. No dental abscesses or uvula swelling. No oropharyngeal exudate or tonsillar abscesses. ____ EYES: Conjunctivae and EOM are normal. Pupils are equal, round, and reactive to light. Right eye exhibits no discharge. Left eye exhibits no discharge. No scleral icterus. ____ NECK: Normal range of motion. Neck supple. No JVD present. No spinous process tenderness present. No carotid bruit present. No rigidity. No tracheal deviation and normal range of motion present. No Brudzinski's sign and no Kernig 's sign noted. ____ CV: Normal rate, regular rhythm, normal heart sounds and intact distal pulses. There is no peripheral edema. Palpable radial pulses bue. ____ PULM/CHEST: Effort normal and breath sounds normal. No respiratory distress. No stridor. She has no wheezes. She has no rales. Chest Wall: She exhibits no tenderness. ____ ABD: The abdomen is soft. Bowel sounds are normal. She has no distension. No mass is present. There is no tenderness. There is no rebound, no guarding, no Nelson's sign and no tenderness at McBurney's point. Rovsig negative MUSC/SKEL: Normal range of motion. There is no peripheral edema, tenderness or deformity. LYMPH: No cervical adenopathy. ____ NEURO: She has normal strength. No cranial nerve deficit or sensory deficit. Coordination and gait normal. GCS eye subscore is 4. GCS verbal subscore is 5. GCS motor subscore is 6. Cerebellar tests wnl. ____ SKIN: Skin is warm and dry. She is not diaphoretic. ____ PSYCH: She has a normal mood and affect. Her behavior is normal. Judgment and thought content normal. ____ Medical Decision & Procedures ER Provider Diagnostic Interpretation: Radiology results as stated below per my review and radiologist interpretation: ABDOMEN 2VIEW W/PA CHEST RTN FINDINGS: Erect chest reveals postsurgical changes of midline sternotomy. There is no focal pulmonary consolidation. There is a left subclavian dual-chamber central venous pacemaker. There is no free air. Erect and supine views the abdomen reveal no abnormally dilated loops of large or small bowel. There are no transition zones to indicate bowel obstruction. There is a scoliosis with moderate multilevel degenerative changes. There are postsurgical changes present with scattered sutures. There is also evidence for a prior hernia repair. There is a stable right mid abdominal calcification. This represented a mesenteric calcification, or a contrast opacified diverticulum on the prior 2016 CT scan. IMPRESSION: No evidence of bowel obstruction. No evidence of free air. Electronically signed by: Cesar Ng M.D. CT ANGIOGRAM OF THE CHEST FINDINGS: No pathologically enlarged axillary mediastinal or hilar lymph nodes were visualized. There was no evidence of thoracic aortic dilatation. There are atheromatous changes present within the subclavian arteries There were no pulmonary artery filling defects to indicate acute pulmonary embolism. No pleural effusions are visualized. There was no evidence of focal pulmonary consolidation. There are postsurgical changes of a midline sternotomy. There is a left subclavian central venous pacemaker. There is a 3 mm left lower lobe pulmonary nodule as visualized in image 105/226. In a low risk patient, no further follow-up is indicated. IMPRESSION: 1. No evidence of acute pulmonary embolism 2. No evidence of focal pulmonary consolidation Electronically signed by: Cesar Ng M.D. Laboratory Results 06/07/17 14:20 Red Blood Count 3.85, Mean Corpuscular Volume 97.7, Mean Corpuscular Hemoglobin 31.7, Mean Corpuscular Hemoglobin Concent 32.4, Mean Platelet Volume 11.4, Neutrophils (%) (Auto) 76.6, Lymphocytes (%) (Auto) 12.7, Monocytes (%) (Auto) 8.7, Eosinophils (%) (Auto) 1.5, Basophils (%) (Auto) 0.3, Neutrophils # (Auto) 4.51, Lymphocytes # (Auto) 0.75, Monocytes # (Auto) 0.51, Eosinophils # (Auto) 0.09, Basophils # (Auto) 0.02 06/07/17 14:20 Test 06/07/17 14:20 06/07/17 17:20 White Blood Count 5.89 K/uL (4.8-10.8) Red Blood Count 3.85 M/uL (4.2-5.4) Hemoglobin 12.2 g/dL (12.0-16.0) Hematocrit 37.6 % (37-47) Mean Corpuscular Volume 97.7 fL (80-100) Mean Corpuscular Hemoglobin 31.7 pg (25-34) Mean Corpuscular Hemoglobin Concent 32.4 g/dl (32-36) Platelet Count 164 K/uL (130-400) Mean Platelet Volume 11.4 fL (7.4-10.4) Neutrophils (%) (Auto) 76.6 % Lymphocytes (%) (Auto) 12.7 % Monocytes (%) (Auto) 8.7 % Eosinophils (%) (Auto) 1.5 % Basophils (%) (Auto) 0.3 % Neutrophils # (Auto) 4.51 K/uL (1.4-6.5) Lymphocytes # (Auto) 0.75 K/uL (1.2-3.4) Monocytes # (Auto) 0.51 K/uL (0.11-0.59) Eosinophils # (Auto) 0.09 K/uL (0-0.5) Basophils # (Auto) 0.02 K/uL (0-0.2) RDW Standard Deviation 48.1 fL (36.4-46.3) RDW Coefficient of Variation 13.6 % (11.5-14.5) Immature Granulocyte % (Auto) 0.2 % Immature Granulocyte # (Auto) 0.01 K/uL (0.00-0.02) Anion Gap 6.0 mmol/L (3-11) Est Creatinine Clear Calc Drug Dose 43.0 ml/min Estimated GFR () 53.9 Estimated GFR (Non- 46.5 BUN/Creatinine Ratio 20.4 (10-20) Calcium Level 8.1 mg/dl (8.5-10.1) Total Bilirubin 0.2 mg/dl (0.2-1) Direct Bilirubin mg/dl (0-0.2) Aspartate Amino Transf (AST/SGOT) 40 U/L (15-37) Alanine Aminotransferase (ALT/SGPT) 38 U/L (12-78) Alkaline Phosphatase 132 U/L (45-117) Pro-B-Type Natriuretic Peptide 1154 pg/ml (0-1800) Total Protein 6.8 gm/dl (6.4-8.2) Albumin 2.6 gm/dl (3.4-5.0) Lipase 103 U/L (73-393) Chemistry Specimen Hemolysis Troponin I < 0.015 ng/ml (0-0.045) Laboratory results reviewed by me ECG Per My Interpretation Indication: chest pain Rate (beats per minute): 65 Rhythm: atrial fibrillation Findings: other (RI 132, QRS 132, QTC 426, no ST elevation or ST depression ) Comparison ECG Date: 05/15/17 Change: no significant change ED Course 1424: The patient was evaluated in room A2. A complete history and physical exam was performed. EMR reviewed. Patient was admitted to the hospital in April 2017 for similar episode of chest pain. At that time she had negative serial troponins, a echocardiogram showed an ejection fraction 45-50% with no significant wall motion abnormality. There was left ventricular hypertrophy and borderline hypokinesis of the left ventricle. She was evaluated by her therapist respiratory Dr. Vázquez while in the hospital and he stated that there is no significant change from her previous echoes. He increased her Imdur to 60 mg per day. 1730: Vital signs stable. Patient not reporting any chest pain or difficulty breathing. CT of chest within normal limits. Labs within normal limits. Patient and family were given the option for chest pain observation in the hospital rule out ACS, however they opted not to since she just had a similar admission 1 month ago. Discussed with patient's therapist respiratory insurance operations rep Dr. Nova who agrees that if the patient has a repeat second troponin she can be safely discharged home to follow up with Dr. Vázquez. 1802: Vitals stable, the patient denies any chest pain or shortness of breath. Repeat troponin was negative. She will follow up with Dr. Ricci for her appointment on Thursday. DISCHARGE - Plan of care discussed with patient and questions answered. The patient was given both verbal and printed discharge instructions. The patient verbalized understanding and ability to comply. The patient is to seek outpatient follow up as noted in the discharge instructions. The patient verbalized understanding and ability to comply. The patient is discharged in stable condition. The patient was instructed to return for worsening symptoms. Medical Decision EMR reviewed. Patient was admitted to the hospital in April 2017 for similar episode of chest pain. At that time she had negative serial troponins, a echocardiogram showed an ejection fraction 45-50% with no significant wall motion abnormality. There was left ventricular hypertrophy and borderline hypokinesis of the left ventricle. She was evaluated by her therapist respiratory Dr. Vázquez while in the hospital and he stated that there is no significant change from her previous echoes. He increased her Imdur to 60 mg per day. 1730: Vital signs stable. Patient not reporting any chest pain or difficulty breathing. CT of chest within normal limits. Labs within normal limits. Patient and family were given the option for chest pain observation in the hospital rule out ACS, however they opted not to since she just had a similar admission 1 month ago. Discussed with patient's therapist respiratory insurance operations rep Dr. Nova who agrees that if the patient has a repeat second troponin she can be safely discharged home to follow up with Dr. Vázquez. 1802: Vitals stable, the patient denies any chest pain or shortness of breath. Repeat troponin was negative. She will follow up with Dr. Ricci for her appointment on Thursday. DISCHARGE - Plan of care discussed with patient and questions answered. The patient was given both verbal and printed discharge instructions. The patient verbalized understanding and ability to comply. The patient is to seek outpatient follow up as noted in the discharge instructions. The patient verbalized understanding and ability to comply. The patient is discharged in stable condition. The patient was instructed to return for worsening symptoms. Medication Reconcilliation Current Medication List: was personally reviewed by me Blood Pressure Screening Patient's blood pressure: Elevated blood pressure Blood pressure disposition: Elevated BP felt to be situational Consults Time Called: 1720 Consulting Physician: Dr. Nova-Cardiology Returned Call: 1724 Discussed the patient's case with Dr. DumontCardiology. He said if the patient 's repeat troponin comes back negative she can follow up with cardiology as an outpatient. Impression Primary Impression: Chest pain Scribe Attestation The scribe's documentation has been prepared under my direction and personally reviewed by me in its entirety. I confirm that the note above accurately reflects all work, treatment, procedures, and medical decision making performed by me. The chart was completed utilizing [employer] Speech voice recognition software. Grammatical errors, random word insertions, pronoun errors, and incomplete sentences are an occasional consequence of this system due to software limitations, ambient noise, and hardware issues. Any formal questions or concerns about the content, text, or information contained within the body of this dictation should be directly addressed to the physician for clarification. Departure Information Dispostion Home / Self-Care Referrals Marissa Manley M.D. (PCP) Forms Call Back Authorization, HOME CARE DOCUMENTATION FORM, IMPORTANT VISIT INFORMATION Patient Instructions Chest Pain - [facility], Former[facility] Problem Qualifiers Primary Impression: Chest pain Chest pain type: unspecified Qualified Codes: R07.9 - Chest pain, unspecified
[2017-06-07 14:46] LABS: BASO % 0.3 %; BASO ABS # 0.02 K/uL (0-0.2); EOS % 1.5 %; EOS ABS # 0.09 K/uL (0-0.5); HEMATOCRIT 37.6 % (37-47); HEMOGLOBIN 12.2 g/dL (12.0-16.0); IG# 0.01 K/uL (0.00-0.02); LYMPH % 12.7 %; LYMPH ABS # 0.75 K/uL (1.2-3.4); MEAN CELL VOLUME 97.7 fL (80-100); MEAN CORPUSCULAR HEMOGLOBIN 31.7 pg (25-34); MEAN CORPUSCULAR HGB CONC 32.4 g/dl (32-36); MEAN PLATELET VOLUME 11.4 fL (7.4-10.4); MONO % 8.7 %; MONO ABS # 0.51 K/uL (0.11-0.59); NEUT % 76.6 %; NEUT ABS # 4.51 K/uL (1.4-6.5); PLATELET COUNT 164 K/uL (130-400); RED CELL DISTRIBUTION WIDTH CV 13.6 % (11.5-14.5); RED CELL DISTRIBUTION WIDTH SD 48.1 fL (36.4-46.3); WHITE BLOOD COUNT 5.89 K/uL (4.8-10.8)
[2017-06-07 15:12] VITALS: Ht 157.5 cm; Wt 90.7 kg
--- NOTE | 2017-06-07 15:15 | DIAGNOSTIC IMAGING REPORT ---
ABDOMEN 2VIEW W/PA CHEST RTN CLINICAL HISTORY: epigastric pain COMPARISON STUDY: Chest x-ray dated May 15, 2017 FINDINGS: Erect chest reveals postsurgical changes of midline sternotomy. There is no focal pulmonary consolidation. There is a left subclavian dual-chamber central venous pacemaker. There is no free air. Erect and supine views the abdomen reveal no abnormally dilated loops of large or small bowel. There are no transition zones to indicate bowel obstruction. There is a scoliosis with moderate multilevel degenerative changes. There are postsurgical changes present with scattered sutures. There is also evidence for a prior hernia repair. There is a stable right mid abdominal calcification. This represented a mesenteric calcification, or a contrast opacified diverticulum on the prior 2016 CT scan. IMPRESSION: No evidence of bowel obstruction. No evidence of free air. Electronically signed by: Cesar Ng M.D. 06/07/2017 3:14 PM Dictated Date/Time: 06/07/2017 3:12 PM
[2017-06-07 15:30] LABS: BLOOD UREA NITROGEN 23 mg/dl (7-18); CREATININE 1.13 mg/dl (0.60-1.20); GLUCOSE 291 mg/dl (70-99)
[2017-06-07 15:31] LABS: CALCIUM 8.1 mg/dl (8.5-10.1); CARBON DIOXIDE 26 mmol/L (21-32); POTASSIUM 4.8 mmol/L (3.5-5.1); SODIUM 136 mmol/L (136-145); TOTAL PROTEIN 6.8 gm/dl (6.4-8.2)
[2017-06-07 15:32] LABS: ALBUMIN 2.6 gm/dl (3.4-5.0)
[2017-06-07 15:33] LABS: ALKALINE PHOSPHATASE 132 U/L (45-117); ALT/SGPT 38 U/L (12-78); AST/SGOT 40 U/L (15-37); LIPASE 103 U/L (73-393)
[2017-06-07] MEDS ORDERED: OPTIRAY 320 IV PRN (16:45)
--- NOTE | 2017-06-07 17:08 | DIAGNOSTIC IMAGING REPORT ---
CT ANGIOGRAM OF THE CHEST CLINICAL HISTORY: Chest pain and shortness of breath COMPARISON STUDY: Chest x-ray dated 06/07/2017 TECHNIQUE: Following the IV administration of 93 mL of Optiray-320, CT angiogram of the thorax was performed from the thoracic inlet to the lung bases utilizing the pulmonary embolus protocol. Images are reviewed in the axial, sagittal, and coronal planes. IV contrast was administered without complication. MIP imaging was performed. A dose lowering technique was utilized adhering to the principles of ALARA. CT DOSE: 552.28 mGy.cm FINDINGS: No pathologically enlarged axillary mediastinal or hilar lymph nodes were visualized. There was no evidence of thoracic aortic dilatation. There are atheromatous changes present within the subclavian arteries There were no pulmonary artery filling defects to indicate acute pulmonary embolism. No pleural effusions are visualized. There was no evidence of focal pulmonary consolidation. There are postsurgical changes of a midline sternotomy. There is a left subclavian central venous pacemaker. There is a 3 mm left lower lobe pulmonary nodule as visualized in image 105/226. In a low risk patient, no further follow-up is indicated. IMPRESSION: 1. No evidence of acute pulmonary embolism 2. No evidence of focal pulmonary consolidation Electronically signed by: Cesar Ng M.D. 06/07/2017 5:07 PM Dictated Date/Time: 06/07/2017 5:03 PM
[2017-06-07 18:16] VITALS: BP 175/86; PULSE 65; TEMP 36.5; O2SAT 96
== END 2017-06-07 18:17 | disposition home or self-care (01) ==
LOC: EDBD 14:03 → C.EDA 14:04
DX: R07.9 Chest pain, unspecified (principal); I25.10 Atherosclerotic heart disease of native coronary artery without angina pectoris; I65.29 Occlusion and stenosis of unspecified carotid artery; I12.9 Hypertensive chronic kidney disease with stage 1 through stage 4 chronic kidney disease, or unspecified chronic kidney disease; E11.22 Type 2 diabetes mellitus with diabetic chronic kidney disease; N18.3 Chronic kidney disease, stage 3 (moderate); F03.90 Unspecified dementia, unspecified severity, without behavioral disturbance, psychotic disturbance, mood disturbance, and anxiety; F32.9 Major depressive disorder, single episode, unspecified; E11.319 Type 2 diabetes mellitus with unspecified diabetic retinopathy without macular edema; E78.5 Hyperlipidemia, unspecified; E03.9 Hypothyroidism, unspecified; M81.0 Age-related osteoporosis without current pathological fracture; Z79.82 Long term (current) use of aspirin; Z79.4 Long term (current) use of insulin; Z95.0 Presence of cardiac pacemaker; Z95.1 Presence of aortocoronary bypass graft; Z98.84 Bariatric surgery status; Z87.891 Personal history of nicotine dependence; Z87.19 Personal history of other diseases of the digestive system; Z88.8 Allergy status to other drugs, medicaments and biological substances; Z91.048 Other nonmedicinal substance allergy status; Z88.6 Allergy status to analgesic agent; Z88.5 Allergy status to narcotic agent; Z81.8 Family history of other mental and behavioral disorders